=== PATIENT | male | born 1955 | race American Indian/Alaskan Native ===

== ENCOUNTER 2019-11-07 19:21 | Emergency (ER) | payer OTHER ==
[2019-11-07] MEDS ORDERED: ACETAMINOPHEN 325 MG TAB PO ONE (21:49)
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
[2019-11-07 23:51] VITALS: BP 132/81
== END 2019-11-07 23:12 | disposition home or self-care (01) ==
LOC: ED 19:21
DX: S16.1XXA Strain of muscle, fascia and tendon at neck level, initial encounter (principal); Z98.890 Other specified postprocedural states; V49.49XA Driver injured in collision with other motor vehicles in traffic accident, initial encounter; Y93.89 Activity, other specified; Y92.410 Unspecified street and highway as the place of occurrence of the external cause; Y99.8 Other external cause status
CPT/HCPCS: 72125